=== PATIENT | female | born 1990 | race Caucasian/White ===

== ENCOUNTER 2021-02-09 04:29 | Day surgery (SDC) | payer OTHER ==
[2021-02-09] MEDS ORDERED: morphine SULFATE IMMEDIATE RELEASE 30 MG TAB PO ONE (04:56)
[2021-02-09] MEDS ORDERED: MAG HYDROX/AL HYDROX/SIMETH 30 ML UNIT-DOSE CUP PO ONE (05:17)
[2021-02-09] MEDS ORDERED: FAMOTIDINE 20 MG TABLET PO ONE (05:17)
[2021-02-09] MEDS ORDERED: CLINDAMYCIN 600MG PREMIX IVPB 600 MG/50 ML BAG IVPB ONE ×2 (05:19→05:22)
[2021-02-09] MEDS ORDERED: FAMOTIDINE 20 MG TABLET ONE (05:22)
[2021-02-09] MEDS ORDERED: MAG HYDROX/AL HYDROX/SIMETH 30 ML UNIT-DOSE CUP ONE (05:22)
[2021-02-09 06:31] LABS: BASO % 0.3 % (0-2.0); EOS % 4.1 % (0-4.5); HEMOGLOBIN 12.7 GM/dL (10.7-15.3); LYMPH % 38.7 % (8-40); MCH 29.7 pg (25.7-33.7); MCHC 34.2 g/dl (32.0-36.0); MEAN CELL VOLUME 86.7 fl (80-96); MEAN PLT VOLUME 9.2 fl (7.5-11.1); MONO % 8.3 % (3.8-10.2); NEUT % 48.6 % (42.8-82.8); PLATELET COUNT 364 10^3/uL (134-434); RBC 4.27 M/mm3 (3.60-5.2); RDW 13.8 % (11.6-15.6)
[2021-02-09 06:33] LABS: CHLORIDE 107 mmol/L (98-107); SODIUM 141 mmol/L (136-145)
[2021-02-09 06:35] LABS: CALCIUM 8.7 mg/dL (8.5-10.1)
[2021-02-09 06:36] LABS: ALBUMIN 3.5 g/dl (3.4-5.0); ANION GAP 8 MMOL/L (8-16); BLOOD UREA NITROGEN 14.6 mg/dL (7-18); CO2 26 mmol/L (21-32); EPI CELLS 21 /uL (0-25.1); GLUCOSE,RANDOM 108 mg/dL (74-106); HYALINE CASTS 2 /uL (0-3.1); LIPASE 209 U/L (73-393); PH,URINE 5.5 (5.0-8.0); URINE APPEARANCE CLEAR; URINE BACTERIA 242 /uL (0-1359); URINE BILIRUBIN NEGATIVE (NEGATIVE); URINE COLOR YELLOW; URINE GLUCOSE (UA) NEGATIVE (NEGATIVE); URINE KETONE NEGATIVE (NEGATIVE); URINE LEUK ESTERASE 2+ (NEGATIVE); URINE NITRITE NEGATIVE (NEGATIVE); URINE PROTEIN NEGATIVE (NEGATIVE); URINE RBC 7 /uL (0-23.9); URINE UROBILINOGEN 0.2 mg/dL (0.2-1.0); URINE WBC 121 /uL (0-25.8)
[2021-02-09 06:37] LABS: HCG,QUALITATIVE URINE Negative
[2021-02-09 06:39] LABS: CREATININE 0.9 mg/dL (0.55-1.3); SGOT/AST 26 U/L (15-37); SGPT/ALT 44 U/L (13-61)
[2021-02-09 06:40] LABS: BILIRUBIN,TOTAL 0.3 mg/dL (0.2-1)
[2021-02-09 06:41] LABS: TOT PROT 7.6 g/dl (6.4-8.2)
[2021-02-09 06:42] LABS: ALK PHOS 119 U/L (45-117)
[2021-02-09] MEDS ORDERED: SUCRALFATE 1 GM TABLET (FP) PO ONE (06:52)
[2021-02-09] MEDS ORDERED: SUCRALFATE 1 GM TABLET (FP) ONE (06:56)
[2021-02-09] MEDS ORDERED: ACETAMINOPHEN 1000 MG/100 ML BAG IVPB ONE (07:52)
[2021-02-09] MEDS ORDERED: ACETAMINOPHEN INJECTION 100 ML IVPB ONE (09:37)
[2021-02-09] MEDS ORDERED: morphine CARPU-JECT 2 MG/1 ML DISP.SYRIN IVPUSH PRN (11:23)
[2021-02-09] MEDS ORDERED: ACETAMINOPHEN 1000 MG/100 ML BAG IVPB PRN (11:23)
[2021-02-09] MEDS ORDERED: ONDANSETRON 4 MG/2 ML VIAL IVPB PRN (11:43)
[2021-02-09 12:37] LABS: INR 1.13 (0.83-1.09); PROTHROMBIN TIME (PATIENT) 12.7 SEC (9.7-13.0)
[2021-02-09] MEDS ORDERED: CIPROFLOXACIN 400 MG/D5W 400 MG/200 ML IVPB IVPB ONE (13:18)
[2021-02-09] MEDS ORDERED: CEFTRIAXONE 1 GM/50 ML BAG ONE (16:22)
[2021-02-09] MEDS: LACTATED RINGERS SOLUTION 1,000 ML/1,000 ML INFUS.BAG IV SCH (17:30)
[2021-02-09] MEDS: CEFTRIAXONE 1 GM in DEXTROSE 5%-WATER - 50 ML IVPB SCH (17:38)
[2021-02-09] MEDS ORDERED: PIPERACILLIN/TAZOB 4.5 GM 4.5 GM in DEXTROSE 5%-WATER 100 ML IVPB SCH (18:00)
[2021-02-10 04:55] VITALS: BMI 34.6
[2021-02-10 08:47] LABS: BASO % 0.5 % (0-2.0); HEMATOCRIT 37.3 % (32.4-45.2); HEMOGLOBIN 12.5 GM/dL (10.7-15.3); MCH 29.4 pg (25.7-33.7); MCHC 33.5 g/dl (32.0-36.0); MEAN CELL VOLUME 87.7 fl (80-96); MEAN PLT VOLUME 8.9 fl (7.5-11.1); MONO % 8.2 % (3.8-10.2); NEUT % 46.3 % (42.8-82.8); PLATELET COUNT 322 10^3/uL (134-434); RBC 4.25 M/mm3 (3.60-5.2); RDW 13.8 % (11.6-15.6)
[2021-02-10 09:00] LABS: CREATININE 0.7 mg/dL (0.55-1.3)
[2021-02-10 09:01] LABS: CALCIUM 8.4 mg/dL (8.5-10.1)
[2021-02-10 09:02] LABS: BLOOD UREA NITROGEN 9.3 mg/dL (7-18)
[2021-02-10] MEDS ORDERED: PROPOFOL 20 ML ONE (09:21)
[2021-02-10] MEDS ORDERED: MIDAZOLAM HCL 2 MG/2 ML SINGLE DOSE VIAL ONE (09:21)
[2021-02-10] MEDS ORDERED: ROCURONIUM BROMIDE 100 MG/10 ML VIAL ONE (09:21)
[2021-02-10] MEDS ORDERED: BUPIVACAINE HCL/PF 0.5% (5MG/ML) 10 ML VIAL ONE (09:26)
[2021-02-10] MEDS ORDERED: HYDROmorphone HCl 2 MG/ML VIAL ONE (09:37)
[2021-02-10] MEDS ORDERED: BUPIVACAINE HCL/PF 0.5% (5MG/ML) 10 ML VIAL IJ ONE (09:58)
[2021-02-10] MEDS ORDERED: PANTOPRAZOLE SODIUM 40 MG VIAL IVPUSH SCH (10:00)
[2021-02-10] MEDS ORDERED: NEOSTIGMINE METHYLSULFATE 0.5 MG/ML - 10 ML MDV ONE (10:32)
[2021-02-10] MEDS ORDERED: cefTRIAXone SODIUM 1 GM VIAL ONE (11:52)
[2021-02-10] MEDS: CEFTRIAXONE 1 GM in DEXTROSE 5%-WATER - 50 ML IVPB SCH (11:58)
[2021-02-10] MEDS: LACTATED RINGERS SOLUTION 1,000 ML/1,000 ML INFUS.BAG IV SCH (12:55)
[2021-02-10] MEDS ORDERED: ACETAMINOPHEN 1000 MG/100 ML BAG IVPB PRN (19:32)
[2021-02-11 09:00] LABS: CALCIUM 8.9 mg/dL (8.5-10.1)
[2021-02-11 09:01] LABS: BLOOD UREA NITROGEN 10.3 mg/dL (7-18); MAGNESIUM 2.5 mg/dL (1.8-2.4)
[2021-02-11 09:04] LABS: CREATININE 0.6 mg/dL (0.55-1.3); PHOSPHOROUS 4.1 mg/dL (2.5-4.9)
[2021-02-11 09:05] LABS: BILIRUBIN,TOTAL 0.8 mg/dL (0.2-1); TOT PROT 6.5 g/dl (6.4-8.2)
[2021-02-11 09:19] LABS: HEMATOCRIT 38.1 % (32.4-45.2); HEMOGLOBIN 12.8 GM/dL (10.7-15.3); MCH 29.2 pg (25.7-33.7); MCHC 33.6 g/dl (32.0-36.0); MEAN CELL VOLUME 86.9 fl (80-96); MEAN PLT VOLUME 9.5 fl (7.5-11.1); PLATELET COUNT 374 10^3/uL (134-434); RBC 4.39 M/mm3 (3.60-5.2); RDW 14.2 % (11.6-15.6); WHITE BLOOD COUNT 9.2 K/mm3 (4.0-10.0)
[2021-02-11 15:38] VITALS: BP 108/60; PULSE 72; TEMP 98.4
[2021-02-11] MEDS ORDERED: ACETAMINOPHEN 325 MG TABLET (FP) PO PRN (16:21)
== END 2021-02-11 18:21 | disposition home or self-care (01) ==
LOC: JER 04:29 → JERBED 09:52 → UNDOADMIN 09:52 → J8W 02-10 00:16 → JERBED 02-10 00:16 → JASUSAT 02-10 14:16 → J8W 02-10 14:16 → SUATTDRO 02-10 14:16 → JASUSAT 02-11 18:21
PROVIDERS: ATTEND Internal Medicine
PROC: 0FT44ZZ Resection of Gallbladder, Percutaneous Endoscopic Approach (ICD-10-PCS; principal; 2021-02-10 08:30)
DX: K81.0 Acute cholecystitis (principal)
CPT/HCPCS: 36415; 71046-TC-FY; 76705-TC; 80048; 80053; 81003; 82550; 83690; 83735; 84100; 84484; 84703; 85025; 85027; 85610; 87086; 87186; 88304-TC; 93005; 93010; 94760; 99285-25; C9803; J0131; U0003; U0005